=== PATIENT | female | born 1990 | race Caucasian/White ===

== ENCOUNTER 2016-09-30 10:15 | Outpatient (CLI) | payer OTHER | END 2016-09-30 12:00 | disposition home or self-care (01) | LOC: GENOP 10:15 | DX: O99.89 Other specified diseases and conditions complicating pregnancy, childbirth and the puerperium (principal); R10.9 Unspecified abdominal pain; M79.606 Pain in leg, unspecified; Z3A.36 36 weeks gestation of pregnancy | CPT/HCPCS: G0463 ==

== ENCOUNTER 2016-10-17 14:30 | Inpatient (IN) | payer OTHER ==
[~2016-10-17] VITALS: Ht 167.6 cm; Wt 77.1 kg
[2016-10-17 15:21] LABS: HEMOGLOBIN 13.1 gm/dl (12.3-15.3); RED BLOOD COUNT 4.5 M/UL (4.00-5.10); WHITE BLOOD COUNT 15.8 K/UL (4.5-11.0)
[2016-10-19 03:39] LABS: HEMOGLOBIN 11.7 gm/dl (12.3-15.3)
== END 2016-10-20 12:47 | disposition home or self-care (01) | DRG 775 ==
LOC: GENOP 14:30 → OB 15:05
PROVIDERS: Obstetrics & Gynecology; ADMIT Obstetrics & Gynecology
PROC: 10E0XZZ Delivery of Products of Conception, External Approach (ICD-10-PCS; principal; 2016-10-17)
PROC: 10907ZC Drainage of Amniotic Fluid, Therapeutic from Products of Conception, Via Natural or Artificial Opening (ICD-10-PCS; 2016-10-17)
PROC: 0U7C7ZZ Dilation of Cervix, Via Natural or Artificial Opening (ICD-10-PCS; 2016-10-17)
DX: O75.89 Other specified complications of labor and delivery (principal); Z3A.38 38 weeks gestation of pregnancy; Z37.0 Single live birth; O99.02 Anemia complicating childbirth; D75.9 Disease of blood and blood-forming organs, unspecified; Z88.5 Allergy status to narcotic agent; Z83.3 Family history of diabetes mellitus; Z82.49 Family history of ischemic heart disease and other diseases of the circulatory system; Z84.89 Family history of other specified conditions; Z83.49 Family history of other endocrine, nutritional and metabolic diseases; Z80.9 Family history of malignant neoplasm, unspecified; Z28.21 Immunization not carried out because of patient refusal
CPT/HCPCS: 36415; 51702; 81001; 82800; 85014; 85018; 85025; J2405; J2795; J7120